=== PATIENT | male | born 1975 | race Caucasian/White ===

== ENCOUNTER 2024-06-21 18:32 | Inpatient (IN) | payer MEDICARE, OTHER, SELFPAY ==
[2024-06-21 18:50] VITALS: BP 131/91; PULSE 60; TEMP 36.8; O2SAT 97
--- NOTE | 2024-06-21 19:35 | PC.NURSE ---
The patient arrived on the unit via stretcher from [facility] at 18:47. Status is Section 12B. Skin/ safety check completed and was unremarkable. Per nurse to nurse with DESTINEE Shepard at [facility], the patient arrived to their ER on a Section 12 after allegedly making threatening phone call to his sister in which he threatened homicide or selling her into sex slavery. During his assessment interview there, he adamantly threatening homicide but did admit to threatening to sell her into sex slavery. The patient was cleared for admission here at [facility] with an ETA of 16:30. Admitting diagnosis is Bipolar 1. Per [facility], he presented as paranoid, pressured, loud, and apologetic, and is oriented x 3. Toxicology screen was negative. Vitals and weight were obtained and documented. Admission still needs to be completed.
[2024-06-21 21:32] LABS: Alanine Aminotransferase 24 U/L (0-40); Alkaline Phosphatase 65 U/L (39-117); Anion Gap 13 (12-20); Aspartate Amino Transferase 21 U/L (5-37); Bilirubin Total 0.5 mg/dL (0.0-1.0); Blood Urea Nitrogen 14 mg/dL (9-16); Calcium 9.2 mg/dL (8.4-10.2); Carbon Dioxide 25 mmol/L (22-29); Chloride 107 mmol/L (96-108); Estimated Glomerular Filt Rate > 60; Glucose Random 114 mg/dL (60-115); Sodium 141 mmol/L (135-145); Total Protein 7.1 g/dL (6.5-8.0)
[2024-06-21 22:12] VITALS: BP 107/64; PULSE 48; RESP 18; TEMP 36.4; O2SAT 98
--- NOTE | 2024-06-22 05:12 | PC.ADMIT ---
Jon was admitted for Bipolar I on a 12b from [facility] after making several delusional statements to his daughter about Him killing family members and being involved in sex trafficking. Jon is not to have poor eye contact stating I'm not trying to be rude I just don't like to look people in the eye. it's a lot easier for me to talk to you if I don't look at you. Jon is noted to have repetitive hand movements when speaking to this promotion writer. He repeatedly touched his left hand to his left roman catholic. he is pleasant and cooperative but his orientation is questionable he does now he is in the hospital but is unsure why he is here and denies making statements about killing people or sex trafficking. he is slow to respond to orientation questions and only gave generalized answers, all admission documentation completed however patient requested to sign consents in the morning as he was very tired.
[2024-06-22 08:00] VITALS: BP 127/81; PULSE 65; RESP 16; TEMP 36.8; O2SAT 100
--- NOTE | 2024-06-22 10:15 | P.HPPS_ITS ---
HPI Date of Service: 06/22/24 Chief Complaint: Bipolar I DO ASD Sources of Information: patient interviewed, chart reviewed and crisis/core team assessment reviewed HPI Subjective Notes: Lion Warning (given and shows understanding) and Section 12B Narrative: Mr. Galvan is a 48 year-old male with hx of psychosis/ASD since he was 13 years old. He was assessed by [facility] after sister contacted crisis due to patient apparently threatening sister and her daughter sell them to sex ring. He reported he had been prescribed abilify but had not taken it. When assessed he denied SI or HI. utox was negative. On the unit, pt reports he is increasingly more suspicious about his sister. He believes that [facility] and [facility] are somehow connected to a sex trafficking ring. He reports his sister signed a release of information giving information about him to [facility] and [facility]. He explains that she is not his guardian and thus violated federal law. He goes on to say that inadvertently somehow sister by doing that helped facilitate sex ring which he thinks it is now stronger. He believes his sister gave him out. He feels betrayed. He reports that for the past 4 months he has been struggling. 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 He also believes that he is about to lose housing and social security because [facility] are not against him and will not get assistance if not connected with [facility], which is not the case. He adamantly denies SI or HI. He has a very interesting command of language and careful finding appropriate words to describe the situation. He also reports he likes reading history and at times will interrupt this documentation writer to tell something about his reading. He reports he does not socialize much and spends most of his time in my head. He does present as anxious. He reports his main worry about being in the hospital is that he may lose housing if he does not return back home. He reports sleeping and eating well. Past Psychiatric History: Inpt: prior inpt admission but unclear details OP: [facility] Past medication trials: risperidone, abilify. Medical Evaluation Reviewed: Yes [facility] Social History: Not . Lives in his own. He was born in [place]. he has a sister. Substance History: none Trauma History: not disclose. Diagnostics Vital Signs (24Hr): Vital Signs - 24 hr 02/13/25 18:50 06/21/24 22:12 06/22/24 08:00 Temperature 98.2 F 97.5 F 98.2 F Pulse Rate 60 48 L 65 Respiratory Rate 18 16 Blood Pressure 131/91 H 107/64 127/81 Pulse Oximetry 97 98 100 Oxygen Delivery Method Room Air Room Air Labs 06/21/24 21:01 Labs: Laboratory Results - last 48 hr 06/21/24 21:01 Sodium 141 Potassium 4.0 Chloride 107 Carbon Dioxide 25 Anion Gap 13 BUN 14 Creatinine 1.09 Estim Creat Clear Calc TNP Estimated GFR > 60 Random Glucose 114 Calcium 9.2 Total Bilirubin 0.5 AST 21 ALT 24 Alkaline Phosphatase 65 Total Protein 7.1 Albumin 4.0 Meds/Allergies Meds Home Medications ?Medication ?Instructions ?Recorded ?Confirmed ?Type aripiprazole 20 mg tablet (Abilify) mg 1XD 06/21/24 History Allergies Allergies Allergy/AdvReac Type Severity Reaction Status Date / Time mushroom AdvReac Unknown Verified 06/21/24 20:04 Mental Status Exam Mental Status Exam Narrative: Appearance: wearing hospital gown, fair hygine, stereotyped movements (hand wave-like movement), poor eye contact. Somewhat anxious and slightly hyperventilating. Behavior: cooperative, as conversation goes on bit more trusting of this documentation writer Psychomotor: stereotyped movements of the hands ( not to be confused with dyskinesia or tremor) Speech: clear, regular rate/rhythm/volume, spontaneous.He does have particular way of using words TP: with some elements of derailment or loose associations in his thinking related to paranoid delusions. TC: worried about losing housing and worried that sex ring looking for his sister Mood: Affect: anxious, some hyperventilation noted s/s to his anxious mood s/s to paranoid delusions VH/AH: pt denies but may be internally preoccupied Delusions: paranoid delusions of sex ring in area where he lives and sex ring connected with [facility] and [facility]. Insight/judgment: poor x 2. Memory/cog: alert, oriented x 4. Assessment & Plan Assessment & Plan (1) Schizophrenia, paranoid: Status: Acute Code(s): F20.0 - Paranoid schizophrenia Plan Mr. Galvan is a 48 year-old who was brought on Sect 12a due to increase paranoid delusions and apparent threats to sell sister and her daughter to sex ring. On the unit, pt clarifies that he did not intent or plan to harm his sister or niece but believed that sister by giving information to [facility] and [facility] about him was also helping sex ring in the area that will go after his sister and niece. More than threat, seems like a warning related to his paranoid and persecutory delusions. He denies SI/HI. He reports he has not been taking abilify. He reports trial of risperidone. We discussed risks, benefits and alternative treatment options, he agreed to try new antipsychotic, prolixin 2.5mg po BID and low dose clonazepam for anxiety s/s to paranoia as antipsychotic more effective. Pending collateral information. PLAN 1. Admit to , Sect 12b. 15 minutes checks for safety 2. start prolixin 2.5mg po BID, clonazepam 0.5mg po BID 3. obtain collateral information 4. aftercare planning. Patient educated on: diagnosis and medication risk/benefits Informed Consent: understands Reason for continued inpatient stay Substantial Risk for: inability to function Statement Statement: I have reviewed the history and physical and performed a pertinent examination on my patient. No changes have occurred unless specified. If the History and Physical was not performed prior to admission, the Hospitalist's service will be consulted for completing the admission physical. Time Spent With Patient Time: Total time managing care of this patient today ____ minutes.
[2024-06-22] MEDS: fluPHENAZine HCl 2.5 MG TABLET PO ×2 (14:34→20:01)
[2024-06-22] MEDS: clonazePAM ODT 0.5 MG TAB.RAPDIS PO ×2 (14:35→20:01)
--- NOTE | 2024-06-22 15:04 | P.CONHOSP_ITS ---
History of Present Illness Data of Consult Service Date: 06/22/24 Primary Care Provider: Oleksandr Grajeda MD HPI 48 year old male with history of or Bipolar I admitted under section 12B for delusional thought. He tells me he had no chronic medical illness. 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 He denies any acute medical issues at this time, offering a negative review. Review of Systems 2 Review of Systems: Gen: no fever Resp: no sob, no cough CV: no chest, no SIMPSON, no leg edema GI: No n/v, no abd pain Neuro: No confusion PMFSH Social History Household Members: None Housing: Apartment Do you presently have visiting nurse or other home services: No Patient Tobacco Use Status: Never used Tobacco Use of substances other than those prescribed or required for medical reasons: No Currently Displaying Signs/Symptoms of Drug Intoxication Withdrawal: No Any prior treatment program specific to substance use: No Have you been hit, kicked, punched, or otherwise hurt by someone within the past year? If so, by whom?: No Do you feel safe in your current relationship?: No Current Relationship Is there a partner from a previous relationship who is making you feel unsafe now?: No Are you made to feel afraid or neglected: No Advance Directives: No Advance Directives Information Provided: Yes Recently lost weight without trying: No Eating poorly because of decreased appetite: No Nutrition Risks: No Nutritional Risk Poor oral hygiene: No Meds Allergies Allergy/AdvReac Type Severity Reaction Status Date / Time mushroom AdvReac Unknown Verified 06/21/24 20:04 Active Medications: Current Medications Acetaminophen (Acetaminophen 325 Mg Tablet) 650 mg PO Q6H PRN PRN Reason: Headache/Pain, Scale 1-10 Al Hydroxide/Mg Hydroxide (Magnesium Hydrox/Alum Hydrox 30 Ml Oral.Susp) 30 ml PO Q6H PRN PRN Reason: Heartburn/Nausea Clonazepam (Clonazepam Odt 0.5 Mg Tab.Rapdis) 0.5 mg PO BID [facility] Last Admin: 06/22/24 14:35 Dose: 0.5 mg Fluphenazine HCl (Fluphenazine Hcl 2.5 Mg Tablet) 2.5 mg PO BID [facility] Last Admin: 06/22/24 14:34 Dose: 2.5 mg Hydroxyzine HCl (Hydroxyzine Hcl 25 Mg Tablet) 25 mg PO Q6H PRN PRN Reason: mild anxiety Magnesium Hydroxide (Milk Of Magnesia 30 Ml Oral.Susp) 30 ml PO DAILY PRN PRN Reason: Constipation Nicotine Polacrilex (Nicotine Polacrilex 2 Mg Gum) 2 mg BUCCAL Q2H PRN PRN Reason: Nicotine Cravings Trazodone HCl (Trazodone Hcl 50 Mg Tablet) 50 mg PO BEDTIME PRN PRN Reason: Insomnia Home Medications ?Medication ?Instructions ?Recorded ?Confirmed ?Last Taken ?Type aripiprazole 20 mg tablet (Abilify) mg 1XD 06/21/24 Unknown History Physical Exam 2 Vital Signs and Narrative: Vital Signs: Last Vital Signs Temp 98.2 F 06/22/24 08:00 Pulse 65 06/22/24 08:00 Resp 16 06/22/24 08:00 BP 127/81 06/22/24 08:00 Pulse Ox 100 06/22/24 08:00 O2 Del Method Room Air 06/21/24 22:12 Const: Other: General: AO X 3, no acute distress, Resp: CTA bilateral CVS: S1,S2,RRR GI: +BS, NT, no distention Skin: No rash Neuro: motor grossly intact, cn 2 to 12 intact Psych: delusional, manic Results Labs 06/21/24 21:01 Labs: Laboratory Results - last 24 hr 06/21/24 21:01 Anion Gap 13 Estim Creat Clear Calc TNP Estimated GFR > 60 Random Glucose 114 Calcium 9.2 Total Bilirubin 0.5 AST 21 ALT 24 Alkaline Phosphatase 65 Total Protein 7.1 Albumin 4.0 Assessment and Plan (1) Bipolar 1 disorder: Status: Acute Plan 48 year amle with bipolar 1 admitted for delusional thought, has no acute medical issues at this. Plan: Continue ongoing Psychiatric care. call if needed. Thanks
[2024-06-22 20:00] VITALS: BP 126/80; PULSE 74; RESP 15; TEMP 36.2; O2SAT 97
[2024-06-23 08:00] VITALS: BP 135/73; PULSE 61; RESP 16; TEMP 36.3; O2SAT 99
[2024-06-23] MEDS: clonazePAM ODT 0.5 MG TAB.RAPDIS PO ×2 (09:05→21:15)
[2024-06-23] MEDS: fluPHENAZine HCl 2.5 MG TABLET PO ×2 (09:05→21:15)
--- NOTE | 2024-06-23 09:26 | HO.PSYCHPN ---
Subjective Subjective Date of Service: 06/23/24 Reason For Visit: Bipolar I DO ASD Interim History: Pt seen in [facility], reviewed with the team. Pt requested to be seen later in the day, then declined when approached. Team reports no current concerns. Medication Compliance: Yes Side effects from medications: No Attending Groups: Yes Review of Systems Acute medical concerns: No Medical Review of Systems: unchanged Review of Systems Review of Systems Denies Mental Status Exam Mental Status Exam Patient Appearance: Appropriate Patient Orientation: Person and Place Level of Consciousness: Alert Patient Behavior: Distractible Mood Description: Constricted Affect Description: Constricted Ability to Follow Directions: Fair Speech Pattern: Spontaneous Speech Judgement: Fair Diagnostics Vital Signs (24Hr): Vital Signs - 24 hr 06/22/24 20:00 Temperature 97.1 F Pulse Rate 74 Respiratory Rate 15 Blood Pressure 126/80 Pulse Oximetry 97 Labs 06/21/24 21:01 Labs: Laboratory Results - last 48 hr 06/21/24 21:01 Sodium 141 Potassium 4.0 Chloride 107 Carbon Dioxide 25 Anion Gap 13 BUN 14 Creatinine 1.09 Estim Creat Clear Calc TNP Estimated GFR > 60 Random Glucose 114 Calcium 9.2 Total Bilirubin 0.5 AST 21 ALT 24 Alkaline Phosphatase 65 Total Protein 7.1 Albumin 4.0 Medications Medications Current Medications Acetaminophen (Acetaminophen 325 Mg Tablet) 650 mg PO Q6H PRN PRN Reason: Headache/Pain, Scale 1-10 Al Hydroxide/Mg Hydroxide (Magnesium Hydrox/Alum Hydrox 30 Ml Oral.Susp) 30 ml PO Q6H PRN PRN Reason: Heartburn/Nausea Clonazepam (Clonazepam Odt 0.5 Mg Tab.Rapdis) 0.5 mg PO BID [facility] Last Admin: 06/23/24 09:05 Dose: 0.5 mg Fluphenazine HCl (Fluphenazine Hcl 2.5 Mg Tablet) 2.5 mg PO BID [facility] Last Admin: 06/23/24 09:05 Dose: 2.5 mg Hydroxyzine HCl (Hydroxyzine Hcl 25 Mg Tablet) 25 mg PO Q6H PRN PRN Reason: mild anxiety Magnesium Hydroxide (Milk Of Magnesia 30 Ml Oral.Susp) 30 ml PO DAILY PRN PRN Reason: Constipation Nicotine Polacrilex (Nicotine Polacrilex 2 Mg Gum) 2 mg BUCCAL Q2H PRN PRN Reason: Nicotine Cravings Trazodone HCl (Trazodone Hcl 50 Mg Tablet) 50 mg PO BEDTIME PRN PRN Reason: Insomnia Allergies Allergies Allergy/AdvReac Type Severity Reaction Status Date / Time mushroom AdvReac Unknown Verified 06/21/24 20:04 Assessment & Plan Assessment & Plan (1) Bipolar 1 disorder: Status: Deleted Code(s): F31.9 - Bipolar disorder, unspecified (2) Schizophrenia, paranoid: Status: Acute Code(s): F20.0 - Paranoid schizophrenia Assessment and Plan: 06/23: Continue tx Plan 48 year amle with bipolar 1 admitted for delusional thought, has no acute medical issues at this. Plan: Continue ongoing Psychiatric care. call if needed. Thanks Reason for continued inpatient stay Substantial Risk for: rapid decompensation Time Spent With Patient Time: Total time managing care of this patient today ____ minutes.
[2024-06-23 19:59] VITALS: BP 140/82; PULSE 67; RESP 15; TEMP 36.6; O2SAT 97
[2024-06-24 08:00] VITALS: BP 129/66; PULSE 60; RESP 20; TEMP 36.6; O2SAT 98
[2024-06-24] MEDS: fluPHENAZine HCl 2.5 MG TABLET PO ×2 (09:01→21:02)
[2024-06-24] MEDS: clonazePAM ODT 0.5 MG TAB.RAPDIS PO ×2 (09:01→21:02)
--- NOTE | 2024-06-24 09:36 | HO.PSYCHPN ---
Subjective Subjective Date of Service: 06/24/24 Reason For Visit: Bipolar I DO ASD Subjective Notes: Section 12B Healthcare Proxy: No Guardianship: No Medical Problems Affecting Mental Status: No Interim History: Visable on the unit. Attending some fresh air breaks with peers. No questions or concerns today Tells team he is not in a good place, is anxious and feeling fearful regarding 12B. Medication Compliance: Yes Side effects from medications: No Attending Groups: Intermittent Review of Systems Acute medical concerns: No Review of Systems Review of Systems Yes Unobtainable due to mental status Mental Status Exam Mental Status Exam Patient Appearance: Appropriate Patient Orientation: Person and Place Level of Consciousness: Alert Patient Behavior: Distractible Mood Description: Constricted Affect Description: Constricted Ability to Follow Directions: Fair Speech Pattern: Spontaneous Speech Judgement: Fair Diagnostics Vital Signs (24Hr): Vital Signs - 24 hr 06/23/24 19:59 06/24/24 08:00 Temperature 97.8 F 97.8 F Pulse Rate 67 60 Respiratory Rate 15 20 Blood Pressure 140/82 H 129/66 Pulse Oximetry 97 98 Oxygen Delivery Method Room Air Labs 06/21/24 21:01 Medications Medications Current Medications Acetaminophen (Acetaminophen 325 Mg Tablet) 650 mg PO Q6H PRN PRN Reason: Headache/Pain, Scale 1-10 Al Hydroxide/Mg Hydroxide (Magnesium Hydrox/Alum Hydrox 30 Ml Oral.Susp) 30 ml PO Q6H PRN PRN Reason: Heartburn/Nausea Clonazepam (Clonazepam Odt 0.5 Mg Tab.Rapdis) 0.5 mg PO BID [facility] Last Admin: 06/24/24 09:01 Dose: 0.5 mg Fluphenazine HCl (Fluphenazine Hcl 2.5 Mg Tablet) 2.5 mg PO BID [facility] Last Admin: 06/24/24 09:01 Dose: 2.5 mg Hydroxyzine HCl (Hydroxyzine Hcl 25 Mg Tablet) 25 mg PO Q6H PRN PRN Reason: mild anxiety Magnesium Hydroxide (Milk Of Magnesia 30 Ml Oral.Susp) 30 ml PO DAILY PRN PRN Reason: Constipation Nicotine Polacrilex (Nicotine Polacrilex 2 Mg Gum) 2 mg BUCCAL Q2H PRN PRN Reason: Nicotine Cravings Trazodone HCl (Trazodone Hcl 50 Mg Tablet) 50 mg PO BEDTIME PRN PRN Reason: Insomnia Allergies Allergies Allergy/AdvReac Type Severity Reaction Status Date / Time mushroom AdvReac Unknown Verified 06/21/24 20:04 Assessment & Plan Assessment & Plan (1) Bipolar 1 disorder: Status: Deleted Code(s): F31.9 - Bipolar disorder, unspecified (2) Schizophrenia, paranoid: Status: Acute Code(s): F20.0 - Paranoid schizophrenia Assessment and Plan: 06/23: Continue tx Plan 48 year amle with bipolar 1 admitted for delusional thought, has no acute medical issues at this. Plan: Continue ongoing Psychiatric care. call if needed. Thanks 06/24: Educate/support pt as he will allow. Reason for continued inpatient stay Substantial Risk for: rapid decompensation Time Spent With Patient Time: Total time managing care of this patient today ____ minutes.
[2024-06-24 19:37] VITALS: BP 115/76; PULSE 60; TEMP 36.8; O2SAT 98
--- NOTE | 2024-06-25 08:26 | P.PNPSI_ITS ---
Subjective Subjective Date of Service: 06/25/24 Reason For Visit: Bipolar I DO ASD Subjective Notes: Section 12B Healthcare Proxy: No Guardianship: No Medical Problems Affecting Mental Status: No Interim History: Pt requested to meet. He asked several questions about [id number], commitment criteria, process of section 7/8, outcome of hearing if committed. Expressed paranoia with his out pt connections of [facility] and OP team. Discussed his fears and sisters fears of agencies and feels he is not treated fairly or properly. Several legal representation questions. Pt wanting a legal traveling representative to meet with him and provider prior to a decision being made regarding section 7. Anxious and apprehensive. Medication Compliance: Yes Side effects from medications: No Attending Groups: Intermittent Review of Systems Acute medical concerns: No Mental Status Exam Mental Status Exam Patient Appearance: Appropriate Patient Orientation: Person and Place Level of Consciousness: Alert Patient Behavior: Distractible Mood Description: Constricted Affect Description: Constricted Ability to Follow Directions: Fair Speech Pattern: Spontaneous Speech Judgement: Fair Diagnostics Vital Signs (24Hr): Vital Signs - 24 hr 06/24/24 19:37 Temperature 98.3 F Pulse Rate 60 Blood Pressure 115/76 Pulse Oximetry 98 Oxygen Delivery Method Room Air Labs 06/21/24 21:01 Medications Medications Current Medications Acetaminophen (Acetaminophen 325 Mg Tablet) 650 mg PO Q6H PRN PRN Reason: Headache/Pain, Scale 1-10 Al Hydroxide/Mg Hydroxide (Magnesium Hydrox/Alum Hydrox 30 Ml Oral.Susp) 30 ml PO Q6H PRN PRN Reason: Heartburn/Nausea Clonazepam (Clonazepam Odt 0.5 Mg Tab.Rapdis) 0.5 mg PO BID [facility] Last Admin: 06/24/24 21:02 Dose: 0.5 mg Fluphenazine HCl (Fluphenazine Hcl 2.5 Mg Tablet) 2.5 mg PO BID [facility] Last Admin: 06/24/24 21:02 Dose: 2.5 mg Hydroxyzine HCl (Hydroxyzine Hcl 25 Mg Tablet) 25 mg PO Q6H PRN PRN Reason: mild anxiety Magnesium Hydroxide (Milk Of Magnesia 30 Ml Oral.Susp) 30 ml PO DAILY PRN PRN Reason: Constipation Nicotine Polacrilex (Nicotine Polacrilex 2 Mg Gum) 2 mg BUCCAL Q2H PRN PRN Reason: Nicotine Cravings Trazodone HCl (Trazodone Hcl 50 Mg Tablet) 50 mg PO BEDTIME PRN PRN Reason: Insomnia Allergies Allergies Allergy/AdvReac Type Severity Reaction Status Date / Time mushroom AdvReac Unknown Verified 06/21/24 20:04 Assessment & Plan Assessment & Plan (1) Bipolar 1 disorder: Status: Deleted Code(s): F31.9 - Bipolar disorder, unspecified (2) Schizophrenia, paranoid: Status: Acute Code(s): F20.0 - Paranoid schizophrenia Assessment and Plan: 06/23: Continue tx 06/25: Continue tx Attempt to offer support/education Plan 48 year amle with bipolar 1 admitted for delusional thought, has no acute medical issues at this. Plan: Continue ongoing Psychiatric care. call if needed. Thanks 2/ Reason for continued inpatient stay Substantial Risk for: rapid decompensation Time Spent With Patient Time: Total time managing care of this patient today ____ minutes.
[2024-06-25] MEDS: clonazePAM ODT 0.5 MG TAB.RAPDIS PO ×2 (09:15→20:21)
[2024-06-25] MEDS: fluPHENAZine HCl 2.5 MG TABLET PO ×2 (09:15→20:21)
[2024-06-25 09:25] VITALS: BP 118/81; PULSE 66; TEMP 37.1; O2SAT 99
[2024-06-25 20:00] VITALS: BP 122/60; PULSE 63; RESP 16; TEMP 36.7; O2SAT 98
[2024-06-26 09:50] VITALS: BP 131/74; PULSE 67; TEMP 36.9; O2SAT 97
[2024-06-26] MEDS: clonazePAM ODT 0.5 MG TAB.RAPDIS PO ×2 (10:49→21:33)
[2024-06-26] MEDS: fluPHENAZine HCl 2.5 MG TABLET PO ×2 (10:49→21:34)
--- NOTE | 2024-06-26 13:39 | P.PNPSI_ITS ---
Subjective Subjective Date of Service: 06/26/24 Reason For Visit: Bipolar I DO ASD Interim History: Patient reports he had a good day ; patient stated, I am taking my medications, showering, going to groups and doing everything I should be doing . Guarded; pt kept 1:1 brief. Keeping to self. pt encouraged to tell nursing if he would like to speak to T/W again. Medication Compliance: Yes Mental Status Exam Mental Status Exam Narrative: Pt is alert and oriented; behavior is guarded, pt kept assessment brief; dressed in casual attire; mood is described as good ; eye contact poor; Speech is normal rate, volume and not pressured; focused on discharge; denies SI/HI/AH/VH. Diagnostics Vital Signs (24Hr): Vital Signs - 24 hr 06/25/24 20:00 06/26/24 09:50 Temperature 98.0 F 98.5 F Pulse Rate 63 67 Respiratory Rate 16 Blood Pressure 122/60 131/74 Pulse Oximetry 98 97 Oxygen Delivery Method Room Air Room Air Labs 06/21/24 21:01 Medications Medications Current Medications Acetaminophen (Acetaminophen 325 Mg Tablet) 650 mg PO Q6H PRN PRN Reason: Headache/Pain, Scale 1-10 Al Hydroxide/Mg Hydroxide (Magnesium Hydrox/Alum Hydrox 30 Ml Oral.Susp) 30 ml PO Q6H PRN PRN Reason: Heartburn/Nausea Clonazepam (Clonazepam Odt 0.5 Mg Tab.Rapdis) 0.5 mg PO BID [facility] Last Admin: 06/26/24 10:49 Dose: 0.5 mg Fluphenazine HCl (Fluphenazine Hcl 2.5 Mg Tablet) 2.5 mg PO BID [facility] Last Admin: 06/26/24 10:49 Dose: 2.5 mg Hydroxyzine HCl (Hydroxyzine Hcl 25 Mg Tablet) 25 mg PO Q6H PRN PRN Reason: mild anxiety Magnesium Hydroxide (Milk Of Magnesia 30 Ml Oral.Susp) 30 ml PO DAILY PRN PRN Reason: Constipation Nicotine Polacrilex (Nicotine Polacrilex 2 Mg Gum) 2 mg BUCCAL Q2H PRN PRN Reason: Nicotine Cravings Trazodone HCl (Trazodone Hcl 50 Mg Tablet) 50 mg PO BEDTIME PRN PRN Reason: Insomnia Allergies Allergies Allergy/AdvReac Type Severity Reaction Status Date / Time mushroom AdvReac Unknown Verified 06/21/24 20:04 Assessment & Plan Assessment & Plan (1) Schizophrenia, paranoid: Status: Acute Code(s): F20.0 - Paranoid schizophrenia Plan Mr. Galvan is a 48 year-old who was brought on Sect 12a due to increase paranoid delusions and apparent threats to sell sister and her daughter to sex ring. On the unit, pt clarifies that he did not intent or plan to harm his sister or niece but believed that sister by giving information [facility] him was also helping sex ring in the area that will go after his sister and niece. More than threat, seems like a warning related to his paranoid and persecutory delusions. He denies SI/HI. He reports he has not been taking abilify. He reports trial of risperidone. We discussed risks, benefits and alternative treatment options, he agreed to try new antipsychotic, prolixin 2.5mg po BID and low dose clonazepam for anxiety s/s to paranoia as antipsychotic more effective. Pending collateral information. PLAN 1. Admit to , Sect 12b. 15 minutes checks for safety 2. start prolixin 2.5mg po BID, clonazepam 0.5mg po BID 3. obtain collateral information 4. aftercare planning. 06/26: Patient reports he had a good day ; patient stated, I am taking my medications, showering, going to groups and doing everything I should be doing . Guarded; pt kept 1:1 brief. Keeping to self. pt encouraged to tell nursing if he would like to speak to T/W again. Continue current treatment plan. Patient educated on: medication risk/benefits Reason for continued inpatient stay Substantial Risk for: med/psych decompensation Time Spent With Patient Time: Total time managing care of this patient today _10___ minutes.
[2024-06-26 21:10] VITALS: BP 125/74; PULSE 67; TEMP 36.9; O2SAT 96
[2024-06-27 08:00] VITALS: BP 123/82; PULSE 68; RESP 16; TEMP 36.8; O2SAT 99
[2024-06-27] MEDS: fluPHENAZine HCl 2.5 MG TABLET PO (08:31)
[2024-06-27] MEDS: clonazePAM ODT 0.5 MG TAB.RAPDIS PO (08:31)
--- NOTE | 2024-07-05 15:52 | P.DS_ITS ---
DS: Providers Provider Date of Service: 06/27/24 Date of admission: 06/21/24 18:32 Date of discharge: 06/27/24 Primary care physician: Oleksandr Grajeda MD Admitting clinician: Shyann Welch Attending physician on admission: Drake Parker Consults: 06/21/24 20:43 Consult to Hospitalist Routine Comment: Consulting Provider: [facility] Reason For Exam: Direct admission Attending physician on discharge: Drake Parker Discharging clinician: Shyann Welch DS: Diagnosis Discharge Diagnosis (1) Schizophrenia, paranoid: Status: Acute DS: Medications Discharge Medications Home Medications: Previous Rx's ?Medication ?Instructions ?Recorded aripiprazole 10 mg tablet (Abilify) 10 mg PO DAILY #14 tabs 06/27/24 clonazepam 0.5 mg disintegrating 0.5 mg PO BID #14 tabs 06/27/24 tablet fluphenazine HCl 2.5 mg tablet 2.5 mg PO BID #60 tabs 06/27/24 Mental Status Exam Mental Status Exam Patient Appearance: Appropriate Patient Orientation: Person and Place Level of Consciousness: Alert Patient Behavior: Distractible Mood Description: Constricted Affect Description: Constricted Ability to Follow Directions: Fair Speech Pattern: Spontaneous Speech Judgement: Fair DS: Summary Hospital Course Hospital Course: Admission to adult psychiatry for exacerbation of schizophrenia after stopping medicine in the community. Pt was placed on a Section 12B. Medications were evaluated and titrated. Pt accepted fluphenazine while in hospital and agreed to re-start Abilify upon discharge as this had been effective for him in the past. Pt was discharged at the completion of his Section 12B. This plan was not agreed upon by family or out pt team, however, pt was not suicidal, homicidal and was willing to take all medication and advice from his out pt team. He was hospitalized a long way from his home and wanted to be in his own area, working with people he knew. He discussed feeling hurt by his out patient providers and [facility] due to miscommunications prior to admission. He agreed that he needed to discuss these feelings with them, stating I will do whatever they ask when I am at home. Status at Discharge Functional status at discharge: independent ambulation Overall status at discharge: patient is progressing back to baseline Time Spent with Patient Time attestation: Total time managing care of this patient today ____ minutes. Time spent: Less than 30 minutes Discharge Plan Discharge Anticipated Discharge Date/Time: 06/27/24 12:00 Patient Disposition: Home, Self-Care Discharge Diagnosis: schizophrenia Referrals: Oleksandr Grajeda MD [Primary Care Provider] - 1 Week (office will call pt with follow up appointment ) Discharge Medications: New fluphenazine HCl 2.5 mg Tablet 2.5 mg PO BID Qty: 60 0RF clonazepam 0.5 mg Tablet,Disintegrating 0.5 mg PO BID Qty: 14 4RF aripiprazole [Abilify] 10 mg tablet 10 mg PO DAILY Qty: 14 0RF Discontinued aripiprazole [Abilify] 20 mg Tablet 1XD Discharge Orders: Discharge Order (Routine); Ordered 06/27/24 Ordered By: Shyann Welch Diet: Advance to usual diet Activity on Discharge: As tolerated Stand Alone Forms: Patient Portal Discharge page Print Language: Tamazight Care Plan Goals: Mood and Behavioral Stabilization Health Concerns: Mood and Behavioral Stabilization Plan of Treatment: Take medication as directed Attend scheduled appointments Call/Return if needed Assessment: Pt declines further treatment. Section 12B expires today. He reports no SI,HI no plan, no intent to harm others, himself He reports he will take any and all medications prescribed and follow all plans of care moving forward. Discharge Date/Time: 06/27/24 14:03
== END 2024-06-27 14:03 | disposition home or self-care (01) | DRG 885 ==
PROVIDERS: Psychiatry & Neurology Psychiatry; Admitting Provider Psychiatry & Neurology Psychiatry; PCP Internal Medicine; Visit Provider Psychiatry & Neurology Psychiatry
DX: F20.0 Paranoid schizophrenia (principal); F31.9 Bipolar disorder, unspecified; F84.0 Autistic disorder; Z79.899 Other long term (current) drug therapy
CPT/HCPCS: 36415; 80053

== ENCOUNTER → 2024-06-21 18:32 | Outpatient (BNV) | payer MEDICARE, OTHER, SELFPAY | PROVIDERS: Admitting Provider Psychiatry & Neurology Psychiatry; PCP Internal Medicine; Visit Provider Clinical Nurse Specialist Psychiatric/Mental Health, Adult | DX: F31.9 Bipolar disorder, unspecified (principal); F20.0 Paranoid schizophrenia | CPT/HCPCS: 90792; 99231; 99232 ==

== ENCOUNTER → 2024-06-21 18:32 | Outpatient (BNV) | payer MEDICARE, OTHER, SELFPAY | PROVIDERS: Admitting Provider Psychiatry & Neurology Psychiatry; PCP Internal Medicine; Visit Provider Internal Medicine | DX: F31.9 Bipolar disorder, unspecified (principal) | CPT/HCPCS: 99222 ==